=== PATIENT | female | born 1980 | race Caucasian/White ===

== ENCOUNTER → 2021-02-10 | Outpatient (CLI) | payer OTHER ==
--- NOTE | 2021-02-10 11:21 | US ---
EXAMINATION TYPE: US abdomen complete DATE OF EXAM: 02/10/2021 COMPARISON: NONE CLINICAL HISTORY: R10.13 upper gastric abd pain. Midline epigastric pain to umbilical area pain noted when pressure is applied to abdomen and with exercise. EXAM MEASUREMENTS: Liver Length: 15.5 cm Gallbladder Wall: 0.2 cm CBD: 0.5 cm Spleen: 8.2 cm Right Kidney: 9.4 x 6.6 x 3.9 cm Left Kidney: 9.1 x 5.5 x 4.5 cm Pancreas: Obscured by bowel gas Liver: wnl Gallbladder: wnl Evidence for sonographic Viveros's sign: no CBD: wnl Spleen: wnl Right Kidney: No hydronephrosis or masses seen Left Kidney: No hydronephrosis or masses seen Upper IVC: wnl Abd Aorta: wnl Umbilicus at area of pain: no hernia is noted here with and without Valsalva Maneuver. IMPRESSION: 1. No acute process
== END | disposition home or self-care (01) ==
LOC: RADUSWWP 10:18
PROVIDERS: ATTEND Family Medicine
DX: R10.13 Epigastric pain (principal)
CPT/HCPCS: 76700

== ENCOUNTER → 2022-09-25 | Outpatient (CLI) | payer OTHER ==
[2022-09-25 10:12] VITALS: BP 108/69; PULSE 78; RESP 17; TEMP 97.8
--- NOTE | 2022-09-25 12:40 | P.HPOB ---
History of Present Illness H&P Date: 09/25/22 Chief Complaint: The patient is here for her routine gynecologic exam. This is a 42-year-old 0-3 with an LMP of 09/21/2022. The patient is here to establish with this office. It has been about 3 years since her last pelvic exam. She is status post tubal ligation. She states her menstrual periods have been somewhat variable over the past 2 years and can be from every 2-4 weeks and they can vary in flow from being very light and short to heavier. She states she recently broke up with an individual she was with for 7 months. She found out that this next partner was being unfaithful and was being sexually active with somebody else. They are no longer together and she is not seeing anybody at this time. She is requesting STD testing. She denies unusual vaginal discharge or genital lesions. Review of Systems She states her weight can fluctuate from the 120s to 150 pounds. She attributes this to eating differently at different times. She denies respiratory, cardiac, or GI problems. Past Medical History Additional Past Medical History / Comment(s): DEGENERATIVE DISC DISEASE. ADHD. 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 She has no other history of STDs. History of Any Multi-Drug Resistant Organisms: None Reported Past Surgical History: Section, Tonsillectomy, Tubal Ligation Additional Past Surgical History / Comment(s): section 2. Tubal ligation with her last section. One VTP. Past Anesthesia/Blood Transfusion Reactions: No Reported Reaction Past Psychological History: ADD/ADHD, Anxiety, Depression (She denies current depression on her medications.) Smoking Status: Current some day smoker (About 3 cigarettes per month.) Past Alcohol Use History: Rare (3 per year) Past Drug Use History: Marijuana Additional Drug Use History / Comment(s): She smokes marijuana daily and also uses edible's. Additional History: She is and is currently not seeing anybody at this time. She is currently not working outside of the home. - Past Family History Mother Family Medical History: Unable to Obtain Additional Family Medical History / Comment(s): The patient is adopted and does not know family history. Medications and Allergies Home Medications Medication Instructions Recorded Confirmed Type DULoxetine HCL [Cymbalta] 40 mg PO DAILY 09/25/22 09/25/22 History Dextroamphetamine/Amphetamine 15 mg PO DAILY 09/25/22 09/25/22 History [Adderall Xr 15 mg Capsule] Allergies Allergy/AdvReac Type Severity Reaction Status Date / Time Sulfa (Sulfonamide Allergy Swelling Unverified 09/25/22 10:06 Antibiotics) Exam Vital Signs Temp Pulse Resp BP Pulse Ox 09/25/22 10:08 97.8 F 78 17 108/69 100 Intake and Output 09/24/22 09/25/22 09/25/22 22:59 06:59 14:59 Other: Weight 63.049 kg Height 5 feet 4 inches, weight 139 pounds, BMI 23.9. This is a well-developed well-nourished white female who is alert and oriented times 3 in no acute distress. HEENT: Within normal limits. NECK: Supple without mass or thyromegaly. CHEST AND LUNGS: Clear to auscultation. HEART: Regular rate and rhythm. BREASTS: Are without mass or discharge. AXILLARY EXAM: Negative for adenopathy. BACK: Negative for CVA tenderness. ABDOMEN: Soft, nontender, without palpable masses. PELVIC EXAM: Normal external genitalia. Cervix and vagina appear normal. There is a small amount of old blood consistent with her LMP. There is no unusual discharge. There is no evidence of prolapse. The uterus is midposition, nongravid size and nontender. There are no palpable adnexal masses or tenderness. RECTAL EXAM: negative for mass or tenderness and is negative for occult blood. EXTREMITIES: Nontender. IMPRESSION: 1. 42-year-old female who is status post tubal ligation, with mild menstrual irregularity. Normal gynecologic exam. 2. The patient is requesting STD testing because she found that her ex-partner was not faithful. No evidence of STDs on exam today. PLAN: 1. Pap smear cotest was performed. 2. Self breast awareness was discussed with the patient. We have also discussed symptoms associated with inflammatory breast cancer. 3. GC and Chlamydia testing was obtained from the cervix. Trichomonas screening was obtained from the vagina. STD blood testing was also recommended. This will include HIV, RPR, hepatitis B surface antigen, and hepatitis C antibody. The order slip was given to the patient. She states she may have to do this at a later time. 4. Osteoporosis prevention was discussed. I have stressed the importance of adequate calcium, vitamin D and regular exercise. Recommended amounts of calcium and vitamin D were also discussed. 5. Steed D prevention was discussed. I have stressed the importance of limiting sexual partners. I also recommended that she use condoms if she is sexually active. 6. She will keep a menstrual calendar and return if she continues to have menstrual problems. 7. She has not received a Covid vaccination and has not had Covid. I have recommended that she look into getting a Covid vaccination. She will consider this. 8. She was advised to return in one year for her annual well woman exam and as needed.
[2022-09-27 14:58] LABS: C. trachomatis,PCR Negative (Neg,Equiv); Chlamydia trachomatis Source Cervix; N. gonorrhoeae,PCR Negative (Neg,Equiv); Neisseria Source Cervix
== END ==
LOC: WWCWWP 09:58
PROVIDERS: ATTEND Obstetrics & Gynecology
DX: Z01.419 Encounter for gynecological examination (general) (routine) without abnormal findings (principal); Z98.51 Tubal ligation status; Z88.2 Allergy status to sulfonamides
CPT/HCPCS: 87491; 87591; 87808

== ENCOUNTER → 2023-02-28 | Outpatient (CLI) | payer OTHER ==
--- NOTE | 2023-03-01 08:23 | MM ---
Reason for Exam: Screening (asymptomatic). Baseline mammogram. Patient History: Menarche at age 11. First Full-Term at age 21. Patient has history of breast feeding. Patient used Hormonal Contraceptives for 2 years. Last menstrual period: 02/06/2023 Risk Values: Shelly 5 year model risk: 0.5%. NCI Lifetime model risk: 8.0%. Prior Study Comparison: Patient's first Mammogram. Tissue Density: The breast tissue is heterogeneously dense. This may lower the sensitivity of mammography. Findings: Analyzed By CAD. There is no suspicious group of microcalcifications or suspicious mass in either breast. Overall Assessment: Negative, BI-RAD 1 Management: Screening Mammogram of both breasts in 1 year. A clinical breast exam by your physician is recommended on an annual basis and results should be correlated with mammographic findings. Electronically signed and approved by: Rainer Jenkins D.O.
== END | disposition home or self-care (01) ==
LOC: RADMAMWWP 02-21 08:30
PROVIDERS: ATTEND Obstetrics & Gynecology
DX: Z12.31 Encounter for screening mammogram for malignant neoplasm of breast (principal)
CPT/HCPCS: 77067